=== PATIENT | male | born 1945 | race Caucasian/White ===

== ENCOUNTER → 2019-03-07 14:22 | Outpatient (BNVA) | payer MEDICARE, OTHER, SELFPAY | PROVIDERS: PCP Internal Medicine; Visit Provider Urology | DX: C61 Malignant neoplasm of prostate (principal); N40.1 Benign prostatic hyperplasia with lower urinary tract symptoms; N13.8 Other obstructive and reflux uropathy | CPT/HCPCS: 99203 ==

== ENCOUNTER → 2020-10-01 11:13 | Outpatient (BNVA) | payer MEDICARE, OTHER, SELFPAY | PROVIDERS: PCP Internal Medicine; Referring Provider Internal Medicine; Visit Provider Urology | DX: C61 Malignant neoplasm of prostate (principal) | CPT/HCPCS: 99213; 99442 ==

== ENCOUNTER → 2021-04-01 10:46 | Outpatient (BNVA) | payer MEDICARE, OTHER, SELFPAY | PROVIDERS: PCP Internal Medicine; Referring Provider Internal Medicine; Visit Provider Urology | DX: C61 Malignant neoplasm of prostate (principal); N40.0 Benign prostatic hyperplasia without lower urinary tract symptoms | CPT/HCPCS: 99213 ==

== ENCOUNTER 2021-06-10 16:09 | Outpatient (REF) | payer MEDICARE, OTHER, SELFPAY ==
[2021-06-10 19:11] LABS: ALT 18 U/L (16-63); Anion Gap 9.4 mmol/L (3-11); BUN 23 mg/dL (7-18); CO2 28.6 mmol/L (21.0-32.0); CREATININE 1.2 mg/dL (0.70-1.30); Calcium 10.1 mg/dL (8.5-10.1); Chloride 106 mmol/L (98-107); Estimated GFR 59.02 (mL/min/1.73m2); Glucose 95 mg/dL (74-106); LDL CHOLESTEROL 109 mg/dL (<100); Sodium 144 mmol/L (136-145)
[2021-06-10 19:32] LABS: NT-proBNP 175 pg/mL (<300)
== END 2021-06-10 16:10 | disposition home or self-care (01) ==
LOC: NCHCN 16:09
PROVIDERS: PCP Internal Medicine; Visit Provider Internal Medicine
DX: E78.5 Hyperlipidemia, unspecified (principal); I10 Essential (primary) hypertension
CPT/HCPCS: 80048; 83721; 83880; 84460

== ENCOUNTER → 2021-10-28 08:27 | Outpatient (BNVA) | payer MEDICARE, OTHER, SELFPAY | PROVIDERS: PCP Internal Medicine; Referring Provider Internal Medicine; Visit Provider Urology | DX: R69 Illness, unspecified (principal) ==

== ENCOUNTER → 2022-05-05 13:56 | Outpatient (BNVA) | payer MEDICARE, SELFPAY | PROVIDERS: PCP Internal Medicine; Referring Provider Internal Medicine; Visit Provider Urology | DX: C61 Malignant neoplasm of prostate (principal) | CPT/HCPCS: 99213 ==

== ENCOUNTER 2022-09-14 17:20 | Outpatient (REF) | payer MEDICARE, SELFPAY ==
[2022-09-14 19:52] LABS: Albumin 4.2 g/dL (3.4-5.0); Anion Gap 5.8 mmol/L (3-11); BUN 25 mg/dL (7-18); CO2 30.2 mmol/L (21.0-32.0); CREATININE 1.2 mg/dL (0.70-1.30); Calcium 9.8 mg/dL (8.5-10.1); Chloride 105 mmol/L (98-107); Estimated GFR 62.67 (mL/min/1.73m2); Glucose 104 mg/dL (74-106); NT-proBNP 83 pg/mL (<300); PHOSPHORUS 3.6 mg/dL (2.6-4.7); Potassium 3.7 mmol/L (3.5-5.1); Sodium 141 mmol/L (136-145)
[2022-09-15 19:51] LABS: PSA, Diagnostic 1.7 ng/mL (<=6.5)
== END 2022-09-14 17:21 | disposition home or self-care (01) ==
LOC: NCHCN 17:20
PROVIDERS: PCP Internal Medicine; Visit Provider Internal Medicine
DX: Z00.00 Encounter for general adult medical examination without abnormal findings (principal); N18.2 Chronic kidney disease, stage 2 (mild); C61 Malignant neoplasm of prostate
CPT/HCPCS: 80069; 83880; 84153

== ENCOUNTER → 2022-11-10 07:49 | Outpatient (BNVA) | payer MEDICARE, SELFPAY | PROVIDERS: PCP Internal Medicine; Referring Provider Internal Medicine; Visit Provider Urology | DX: C61 Malignant neoplasm of prostate (principal) | CPT/HCPCS: 99441 ==

== ENCOUNTER → 2023-05-11 14:01 | Outpatient (BNVA) | payer MEDICARE, SELFPAY | PROVIDERS: PCP Internal Medicine; Referring Provider Internal Medicine; Visit Provider Urology | DX: C61 Malignant neoplasm of prostate (principal) | CPT/HCPCS: 99213 ==

== ENCOUNTER 2023-10-01 15:12 | Outpatient (REF) | payer MEDICARE, SELFPAY ==
[2023-10-01 19:39] LABS: Anion Gap 5.7 mmol/L (3-11); BUN 25 mg/dL (7-18); CO2 31.3 mmol/L (21.0-32.0); CREATININE 1.1 mg/dL (0.70-1.30); Calcium 10.1 mg/dL (8.5-10.1); Calculated LDL 81 mg/dL (<100); Chloride 104 mmol/L (98-107); Cholesterol 151 mg/dL (<200); Estimated GFR 69.14 (mL/min/1.73m2); Glucose 99 mg/dL (74-106); HDL Cholesterol 38 mg/dL (40-60); Potassium 3.8 mmol/L (3.5-5.1); Sodium 141 mmol/L (136-145); Triglyceride 160 mg/dL (<150)
== END 2023-10-01 15:13 | disposition home or self-care (01) ==
LOC: NCHCN 15:12
PROVIDERS: PCP Internal Medicine; Visit Provider Internal Medicine
DX: I10 Essential (primary) hypertension (principal); I42.0 Dilated cardiomyopathy
CPT/HCPCS: 80048; 80061

== ENCOUNTER → 2023-11-09 08:06 | Outpatient (BNVA) | payer MEDICARE, SELFPAY | PROVIDERS: PCP Internal Medicine; Referring Provider Internal Medicine; Visit Provider Urology | DX: C61 Malignant neoplasm of prostate (principal) | CPT/HCPCS: 99442 ==

== ENCOUNTER → 2024-05-09 14:04 | Outpatient (BNVA) | payer MEDICARE, SELFPAY | PROVIDERS: PCP Internal Medicine; Visit Provider Urology | DX: C61 Malignant neoplasm of prostate (principal) | CPT/HCPCS: 99213 ==

== ENCOUNTER 2024-10-02 16:45 | Outpatient (REF) | payer MEDICARE, SELFPAY ==
[2024-10-02 19:36] LABS: ALT 30 U/L (16-63); Anion Gap 8.9 mmol/L (3-11); BUN 25 mg/dL (7-18); CO2 28.1 mmol/L (21.0-32.0); CREATININE 1.3 mg/dL (0.70-1.30); Calcium 9.8 mg/dL (8.5-10.1); Calculated LDL 88 mg/dL (<100); Chloride 107 mmol/L (98-107); Cholesterol 154 mg/dL (<200); Estimated GFR 56.23 (mL/min/1.73m2); Glucose 90 mg/dL (74-106); HDL Cholesterol 42 mg/dL (40-60); Potassium 3.9 mmol/L (3.5-5.1); Sodium 144 mmol/L (136-145); Triglyceride 124 mg/dL (<150)
[2024-10-02 20:00] LABS: Creatine Kinase 109 U/L (39-308)
[2024-10-03 18:43] LABS: PSA, Screening 1.6 ng/mL (<=6.5)
== END 2024-10-02 16:46 | disposition home or self-care (01) ==
LOC: NCHCN 16:45
PROVIDERS: PCP Internal Medicine; Visit Provider Internal Medicine
DX: Z00.00 Encounter for general adult medical examination without abnormal findings (principal)
CPT/HCPCS: 80048; 80061; 82550; 84153; 84460

== ENCOUNTER → 2024-11-07 14:05 | Outpatient (BNVA) | payer MEDICARE, SELFPAY | PROVIDERS: PCP Internal Medicine; Referring Provider Internal Medicine; Visit Provider Urology | DX: C61 Malignant neoplasm of prostate (principal) | CPT/HCPCS: 99442 ==

== ENCOUNTER → 2025-05-15 14:21 | Outpatient (BNVA) | payer MEDICARE, SELFPAY | PROVIDERS: PCP Internal Medicine; Visit Provider Urology | DX: C61 Malignant neoplasm of prostate (principal) | CPT/HCPCS: 99213 ==